=== PATIENT | female | born 1930 | race Caucasian/White ===

== ENCOUNTER 2018-07-04 09:12 | Emergency (ER) | payer OTHER ==
[~2018-07-04] VITALS: Ht 160 cm; Wt 81.2 kg
[2018-07-04] MEDS ORDERED: SYNTHROID50 MCG (09:41)
[2018-07-04] MEDS ORDERED: COZAAR25 MG (09:42)
[2018-07-04] MEDS ORDERED: ASPIR 8181 MG PO (09:42)
== END 2018-07-04 11:27 | disposition home or self-care (01) ==
LOC: ER 09:12
DX: G58.8 Other specified mononeuropathies (principal)

== ENCOUNTER 2019-03-28 11:36 | Emergency (ER) | payer OTHER ==
[~2019-03-28] VITALS: Ht 157.5 cm; Wt 81.6 kg
[~2019-03-28 11:36] MED LIST: ASPIR 8181 MG PO; COZAAR25 MG; SYNTHROID50 MCG
== END 2019-03-28 16:43 | disposition home or self-care (01) ==
LOC: ER 11:36
DX: R51 Headache (principal)